=== PATIENT | male | born 1965 | race Caucasian/White ===

== ENCOUNTER 2017-09-01 07:47 | Day surgery (SDC) | payer OTHER ==
[2017-08-28 08:40] VITALS: BMI 30.1
[2017-09-01] MEDS ORDERED: TETRACAINE 0.5% OPHTH SOLN 2 ML BOTTLE ONE (07:59)
[2017-09-01] MEDS ORDERED: LIDOCAINE HCL/PF 2% SDV 5ML VIAL ONE ×2 (07:59→09:36)
[2017-09-01] MEDS ORDERED: LIDOCAINE 1% P/F 10 MG/ML VIAL ONE (07:59)
[2017-09-01] MEDS ORDERED: BSS (NA/CA/MG/K) BALANCED SALT SOLUTION OPHTH SOLN 15 ML BOTTLE ONE (07:59)
[2017-09-01] MEDS ORDERED: POVIDONE-IODINE 5% OPHTHALMIC PREP 30 ML SOLUTION ONE (07:59)
[2017-09-01] MEDS ORDERED: BUPIVACAINE HCL/PF 0.5% (5MG/ML) 10 ML VIAL ONE (07:59)
[2017-09-01] MEDS ORDERED: ACETYLCHOLINE 1:100 INTRA-OCUL 20 MG/2 ML KIT ONE (08:00)
[2017-09-01] MEDS: CYCLOPENTOLATE HCL 1% OPHTH SOLN 2 ML BOTTLE ONE ×5 (08:10→08:30)
[2017-09-01] MEDS: GENTAMICIN SULFATE 0.3% OPHTHALMIC (EYE DROPS) 5ML BOTTLE ONE ×2 (08:10→08:30)
[2017-09-01] MEDS: TROPICAMIDE 1% OPHTH SOLN 15 ML BOTTLE ONE ×5 (08:10→08:30)
[2017-09-01] MEDS: PHENYLEPHRINE 2.5% OPHTH SOLN 15 ML BOTTLE ONE ×5 (08:10→08:30)
[2017-09-01] MEDS: KETOROLAC TROMETHAMINE 0.5% 5 ML BOTTLE OPTHALMIC ONE ×5 (08:10→08:30)
[2017-09-01] MEDS ORDERED: MIDAZOLAM HCL 2 MG/2 ML SINGLE DOSE VIAL ONE (09:07)
[2017-09-01] MEDS ORDERED: LACTATED RINGERS SOLUTION 1,000 ML IV SCH (09:15)
[2017-09-01] MEDS ORDERED: TRYPAN BLUE 0.5 ML DISP.SYRIN ONE (09:31)
[2017-09-01] MEDS ORDERED: ACETAMINOPHEN 325 MG TABLET (FP) PO PRN ×2 (09:36→09:45)
[2017-09-01] MEDS ORDERED: PROPOFOL 20 ML ONE (09:37)
[2017-09-01] MEDS ORDERED: LIDOCAINE HCL 2% JELLY 10 ML CARTRIDGE ONE (09:38)
[2017-09-01] MEDS ORDERED: ONDANSETRON 4 MG/2 ML VIAL IVPUSH PRN (09:40)
[2017-09-01 11:16] VITALS: TEMP 98.2
[2017-09-01 11:19] VITALS: BP 129/68; PULSE 66
--- NOTE | 2017-09-02 13:51 | OP ---
DATE OF OPERATION: 09/01/2017 TITLE OF PROCEDURE: Planned extracapsular cataract extraction, phacoemulsification, insertion of posterior chamber lens implant in the right eye. SURGEON: Austin Souza MD CVT TECH: Austin Souza MD COMPLICATIONS: None. PREOPERATIVE DIAGNOSIS: White cataract of right eye. POSTOPERATIVE DIAGNOSIS: White cataract of right eye. ANESTHESIA: Local standby. NATIONAL ACCOUNT DIRECTOR: Dr. Stern COMPLICATIONS: None. FINDINGS AND PROCEDURE: After peribulbar anesthesia was given to the right eye, the patient was prepped and draped in the usual manner to expose the right eye. Tegaderm strips and a lid speculum were inserted and the microscope brought into position over the eye. Superior fornix-based flap was then fashioned for 12 mm using Carlito scissors and forceps and hemostasis achieved with electrocautery. A side port incision was made with a 15-degree blade at the 2 o'clock position. This was followed by injection of an air bubble, followed by injection of Trypan blue to stain the anterior capsule, and then this was irrigated out with BSS and replaced with Viscoat to protect the cornea and to deepen the anterior chamber, and now the anterior capsule was stained with Trypan blue. Attention was focused at 12 o'clock where a crescent blade was used to perform a 3-mm groove followed by an incision into the anterior chamber with a 3-mm blade, then this was followed by an anterior capsulotomy with the capsulotomy made without complication, then this was followed by phacoemulsification of the entire nucleus of the white cataract without complication, most of which was liquified, and this was followed by irrigation, aspiration of all cortical material, leaving an intact posterior capsule and a red reflex present. There was an inherent amount of posterior subcapsular deposition inferiorly in the cul-de-sac which would not be removed. This was well away from the visual axis, however. Provisc was injected in the posterior chamber to deepen the posterior capsule, and then the implant was inspected carefully with the microscope and found to be free of defects or . It was folded, placed in the Provisc-filled cartridge, the cartridge placed in the injector, and then the implant was injected into the eye such that the inferior haptic was placed in the inferior capsular bag and superior haptic in the superior capsular bag and then rotated in a horizontal position with a Sinskey hook. The Provisc was aspirated out, replaced with Miochol, Miostat, and BSS, and the wounds were closed with single interrupted 2-0 Ethibond suture and tested for leakage, and none was found, and then the conjunctival Tenon flap was reapproximated. At this point, the implant was fixated in the capsular bag, centrally located with a round pupil, intact posterior capsule and a red reflex present. Topical Betoptic S and Maxitrol ophthalmic were placed as was bacitracin, ophthalmic ointment, and then the Tegaderm strips and the lid speculum were removed from the lids, the lids were closed and a patch and shield placed on the eye. The patient was then discharged from the operating room to the recovery area in good condition, having tolerated the procedure well. Shavonne [id number]
== END 2017-09-01 11:20 | disposition home or self-care (01) ==
LOC: FASU 07:47
PROVIDERS: ATTEND Ophthalmology
PROC: 08RJ3JZ Replacement of Right Lens with Synthetic Substitute, Percutaneous Approach (ICD-10-PCS; principal; 2017-09-01 09:50)
DX: H26.8 Other specified cataract (principal); I10 Essential (primary) hypertension

== ENCOUNTER 2018-07-27 09:14 | Day surgery (SDC) | payer BC, OTHER ==
[2018-07-16 12:09] VITALS: BMI 30.7
[~2018-07-27 09:14] MED LIST: CYCLOPENTOLATE HCL 1% OPHTH SOLN 2 ML BOTTLE OS SCH; GENTAMICIN SULFATE 0.3% OPHTHALMIC (EYE DROPS) 5ML BOTTLE OS SCH; KETOROLAC TROMETHAMINE 0.5% EYE DROP 1 DROP DROPS OS SCH; PHENYLEPHRINE 2.5% OPHTH SOLN 15 ML BOTTLE OS SCH; TROPICAMIDE 1% OPHTH SOLN 15 ML BOTTLE OS SCH
[2018-07-27] MEDS ORDERED: ACETAMINOPHEN 325 MG TABLET (FP) PO PRN (09:43)
[2018-07-27] MEDS: KETOROLAC TROMETHAMINE 0.5% EYE DROP 1 DROP DROPS ONE ×5 (10:10→10:30)
[2018-07-27] MEDS: TROPICAMIDE 1% OPHTH SOLN 15 ML BOTTLE ONE ×5 (10:10→10:30)
[2018-07-27] MEDS: PHENYLEPHRINE 2.5% OPHTH SOLN 15 ML BOTTLE ONE ×5 (10:10→10:30)
[2018-07-27] MEDS: GENTAMICIN SULFATE 0.3% OPHTHALMIC (EYE DROPS) 5ML BOTTLE ONE ×5 (10:10→10:30)
[2018-07-27] MEDS: CYCLOPENTOLATE HCL 1% OPHTH SOLN 2 ML BOTTLE ONE ×5 (10:10→10:30)
[2018-07-27] MEDS ORDERED: BACITRACIN/POLYMYXIN OPH OINT 3.5 GM TUBE ONE (12:44)
[2018-07-27] MEDS ORDERED: TETRACAINE 0.5% OPHTH SOLN 2 ML BOTTLE ONE (12:44)
[2018-07-27] MEDS ORDERED: EPI-SHUGARCAINE (EPINEPHRINE 0.025% & LIDOCAINE-PF 0.75%) 4ML ONE (12:44)
[2018-07-27] MEDS ORDERED: POVIDONE-IODINE 5% OPHTHALMIC PREP 30 ML SOLUTION ONE (12:45)
[2018-07-27] MEDS ORDERED: NEO/POLYMYX B SULF/DEXAMETH OPHTHALMIC 5ML BOTTLE ONE (12:45)
[2018-07-27] MEDS ORDERED: ACETYLCHOLINE 1:100 INTRA-OCUL 20 MG/2 ML KIT ONE (12:45)
[2018-07-27] MEDS ORDERED: MIDAZOLAM HCL 2 MG/2 ML SINGLE DOSE VIAL ONE ×2 (12:53→13:07)
[2018-07-27] MEDS ORDERED: ACETYLCHOLINE 1:100 INTRA-OCUL 20 MG/2 ML KIT IO ONE (12:59)
[2018-07-27] MEDS ORDERED: TETRACAINE 0.5% OPHTH SOLN 2 ML BOTTLE OU ONE (12:59)
[2018-07-27] MEDS ORDERED: METOPROLOL TARTRATE 5 MG/5 ML VIAL ONE (13:00)
[2018-07-27] MEDS ORDERED: SODIUM HYALURONATE 8.5 MG/0.85 ML DISP.SYRIN IO ONE (13:00)
[2018-07-27] MEDS ORDERED: TRYPAN BLUE 0.5 ML DISP.SYRIN ONE (13:02)
[2018-07-27] MEDS ORDERED: CHONDROITIN SU A/HYALUR SOD 1 KIT IO ONE (13:04)
[2018-07-27] MEDS ORDERED: TRYPAN BLUE 0.5 ML DISP.SYRIN IO ONE (13:04)
[2018-07-27] MEDS ORDERED: BETAXOLOL HCL 0.25% OPHTHALMIC 10 ML DROPSBTL OS ONE (13:05)
[2018-07-27] MEDS ORDERED: NEO/POLYMYX B SULF/DEXAMETH OPHTHALMIC 5ML BOTTLE OS ONE (13:05)
[2018-07-27] MEDS ORDERED: BACITRACIN/POLYMYXIN OPH OINT 3.5 GM TUBE OS ONE (13:05)
[2018-07-27 13:54] VITALS: BP 150/95; PULSE 74
[2018-07-27 13:55] VITALS: TEMP 98
== END 2018-07-27 14:00 | disposition home or self-care (01) ==
LOC: FASU 09:14
PROVIDERS: ATTEND Ophthalmology
PROC: 08RK3JZ Replacement of Left Lens with Synthetic Substitute, Percutaneous Approach (ICD-10-PCS; principal; 2018-07-27 11:00)
DX: Z53.09 Procedure and treatment not carried out because of other contraindication (principal); H26.9 Unspecified cataract

== ENCOUNTER 2018-11-23 09:19 | Day surgery (SDC) | payer BC ==
[2018-11-16 09:16] VITALS: BMI 30.9
[2018-11-23] MEDS ORDERED: TROPICAMIDE 1% OPHTH SOLN 15 ML BOTTLE ONE (09:38)
[2018-11-23] MEDS ORDERED: CYCLOPENTOLATE HCL 1% OPHTH SOLN 2 ML BOTTLE ONE (09:38)
[2018-11-23] MEDS ORDERED: PHENYLEPHRINE 2.5% OPHTH SOLN 15 ML BOTTLE ONE (09:38)
[2018-11-23] MEDS ORDERED: KETOROLAC TROMETHAMINE 0.5% EYE DROP 1 DROP DROPS ONE (09:38)
[2018-11-23] MEDS ORDERED: GENTAMICIN SULFATE 0.3% OPHTHALMIC (EYE DROPS) 5ML BOTTLE ONE (09:38)
[2018-11-23] MEDS: CYCLOPENTOLATE HCL 1% OPHTH SOLN 2 ML BOTTLE OS SCH ×5 (10:15→10:35)
[2018-11-23] MEDS: GENTAMICIN SULFATE 0.3% OPHTHALMIC (EYE DROPS) 5ML BOTTLE OS SCH ×5 (10:15→10:35)
[2018-11-23] MEDS: PHENYLEPHRINE 2.5% OPHTH SOLN 15 ML BOTTLE OS SCH ×5 (10:15→10:35)
[2018-11-23] MEDS: TROPICAMIDE 1% OPHTH SOLN 15 ML BOTTLE OS SCH ×5 (10:15→10:35)
[2018-11-23] MEDS: KETOROLAC TROMETHAMINE 0.5% EYE DROP 1 DROP DROPS OS SCH ×5 (10:15→10:35)
[2018-11-23 10:19] VITALS: TEMP 98.3
[2018-11-23] MEDS ORDERED: ACETAMINOPHEN 325 MG TABLET (FP) PO PRN (11:04)
[2018-11-23] MEDS ORDERED: TRYPAN BLUE 0.5 ML DISP.SYRIN ONE (12:21)
[2018-11-23] MEDS ORDERED: EPI-SHUGARCAINE (EPINEPHRINE 0.025% & LIDOCAINE-PF 0.75%) 4ML ONE (12:21)
[2018-11-23] MEDS ORDERED: ACETYLCHOLINE 1:100 INTRA-OCUL 20 MG/2 ML KIT ONE (12:21)
[2018-11-23] MEDS ORDERED: POVIDONE-IODINE 5% OPHTHALMIC PREP 30 ML SOLUTION ONE (12:21)
[2018-11-23] MEDS ORDERED: MIDAZOLAM HCL 2 MG/2 ML SINGLE DOSE VIAL ONE (12:36)
[2018-11-23] MEDS ORDERED: ONDANSETRON 4 MG/2 ML VIAL ONE (12:45)
[2018-11-23] MEDS ORDERED: DEXAMETHASONE SOD PHOSPHATE 4 MG/1 ML VIAL ONE (12:45)
[2018-11-23] MEDS ORDERED: ROCURONIUM BROMIDE 50 MG/5 ML VIAL ONE (12:46)
[2018-11-23] MEDS ORDERED: PROPOFOL 20 ML ONE (12:46)
[2018-11-23] MEDS ORDERED: GLYCOPYRROLATE 0.2 MG/1 ML VIAL ONE (13:37)
[2018-11-23] MEDS ORDERED: NEOSTIGMINE METHYLSULFATE 0.5 MG/ML - 10 ML MDV ONE (13:37)
[2018-11-23] MEDS ORDERED: ONDANSETRON 4 MG/2 ML VIAL IVPUSH PRN (13:57)
[2018-11-23] MEDS ORDERED: oxyCODONE HCL 5 MG TABLET PO PRN (13:57)
[2018-11-23] MEDS ORDERED: LACTATED RINGERS SOLUTION 1,000 ML IV SCH (14:00)
[2018-11-23] MEDS ORDERED: ACETAMINOPHEN 325 MG TABLET (FP) ONE (15:06)
[2018-11-23 15:16] VITALS: BP 114/66; PULSE 62
--- NOTE | 2018-11-23 17:48 | OP ---
DATE OF OPERATION: 11/23/2018 PREOPERATIVE DIAGNOSIS: Cataract, hypermature, Morgagnian, left eye. POSTOPERATIVE DIAGNOSIS: Cataract, hypermature, Morgagnian, left eye. PROCEDURE: Cataract extraction via phacoemulsification with insertion of posterior chamber lens implant, using trypan blue, left eye. SURGEON: Blanche Ferris MD MERCHANDISE PLANNING MANAGER: Blanche Ferris MD ANESTHESIA: General anesthesia with endotracheal intubation. COMPLICATIONS: None. SPECIMENS: None. ESTIMATED BLOOD LOSS: Less than 1 mL. PROCEDURE: The patient was identified in the holding area. After all risks, benefits, and alternatives were explained to the patient, informed consent was obtained. The left eye was marked with a marking pen. The patient then entered the operating room on an eye stretcher. After a formal timeout was performed, the patient underwent general anesthesia via endotracheal intubation without complication. Then, the left eye was then prepped and draped in the usual sterile fashion. An eyelid speculum was placed beneath the eyelids of the left eye. An infratemporal paracentesis incision was created using a 15-degree blade. Topical preservative-free epinephrine and preservative-free lidocaine was then injected into the anterior chamber. An intracameral air bubble was placed and trypan blue was used to stain the anterior capsule below the air bubble. Then the air bubble along with trypan blue was irrigated out using balanced saline solution. Viscoelastic was used to fill the anterior chamber. A 2.4-mm keratome blade was then used to make a superotemporal incision. A 360-degree continuous curvilinear capsulorhexis was then created using bent cystotome and Utrata forceps. Hydrodissection was performed using balanced saline solution on a cannula. Phacoemulsification was introduced to disassemble and remove the nucleus in its entirety. Irrigation/aspiration was then used to remove any remaining cortical material from the eye. The capsular bag was reformed using viscoelastic. An Mannie model [id number] with a power of 24.5 diopters, serial number [id number] was inspected and found to be defect-free and injected into the capsular bag. Irrigation/aspiration was then used to remove any remaining viscoelastic from the eye. The anterior chamber was reformed using balanced saline solution. Intracameral injections of Miochol and Miostat were then administered, and the pupil came down and was round. All wounds were hydrated with balanced saline solution and noted to be watertight. There was a red reflex present. The anterior chamber was deep. The eye had an adequate pressure, and the lens was perfectly centered in capsule bag. Topical antibiotic eye drops and ointment were then administered to the left eye. The eyelid speculum was removed from the left eye. The left eye was shielded. The patient tolerated the procedure well and left the operating room in stable condition after a successful extubation to follow up in the eye clinic tomorrow morning at 10:00. BLANCHE FERRIS M.D. [id number]
== END 2018-11-23 15:20 | disposition home or self-care (01) ==
LOC: FASU 09:19
PROVIDERS: ATTEND Ophthalmology
PROC: 08RK3JZ Replacement of Left Lens with Synthetic Substitute, Percutaneous Approach (ICD-10-PCS; principal; 2018-11-23 13:12)
DX: H25.22 Age-related cataract, morgagnian type, left eye (principal)
CPT/HCPCS: 94760